=== PATIENT | female | born 1950 | race Caucasian/White ===

== ENCOUNTER → 2020-02-14 12:25 | Outpatient (CLI) | payer SELFPAY, OTHER ==
--- NOTE | 2020-02-14 12:36 | CT_ITS ---
STUDY: CT ABDOMEN AND PELVIS WITH CONTRAST REASON FOR EXAM: Female, 69 years old. RUQ AND DIFFUSE PAIN. APPY,GB,HERNIA AND C-SECTIONS RADIATION DOSAGE (If Supplied By Facility): CTDIvol = ( 14.87 ) mGy, DLP = ( 872.75 ) mGycm TECHNIQUE: Transaxial images were obtained from the dome of the diaphragm to the symphysis pubis with oral contrast. Oral and amp; IV Readi-CAT and amp; 50mL OPTIRAY 350 was administered. Sagittal and coronal images were reconstructed. Individualized dose optimization techniques were used for this CT. COMPARISON: None. FINDINGS: Minimal increased markings at the lung bases suggestive of mild scarring and/or linear atelectasis. The visualized portions of the heart are within normal limits. There is decreased attenuation of the liver consistent with steatosis. Calcified granuloma in the posterior aspect of the right lobe of the liver. There are surgical clips in the gallbladder fossa consistent with a prior cholecystectomy. Normal spleen. Normal pancreas. Normal bilateral adrenal glands. Normal right kidney. Normal left kidney. There is a small hiatal hernia. Normal small intestine. There are multiple colonic diverticula consistent with diverticulosis. There are surgical clips in the region of the appendix consistent with a prior appendectomy. Normal abdominal aorta. Normal inferior vena cava. Normal retroperitoneum. The bladder is almost empty. Mild bladder wall thickening. There is evidence of a mesh placement for repair of anterior ventral hernia. There are mild degenerative changes of the visualized lumbar spine. CT/Abdomen/Pelvis WITH Contrast IMPRESSION: Fatty infiltration of the liver. Bladder wall thickening. Electronically Signed: Mike Forman, at 13:20 EDT , Service support ,
[2020-02-14 12:50] LABS: CREATININE FINGERSTICK 0.9 mg/dL (0.55-1.02)
== END ==
PROVIDERS: PCP Nurse Practitioner Family; Referring Provider Nurse Practitioner Family; Visit Provider Nurse Practitioner Family
DX: N39.41 Urge incontinence (principal); R14.0 Abdominal distension (gaseous); R10.84 Generalized abdominal pain; R10.9 Unspecified abdominal pain; R19.8 Other specified symptoms and signs involving the digestive system and abdomen; N81.4 Uterovaginal prolapse, unspecified; N39.3 Stress incontinence (female) (male)
CPT/HCPCS: 74177; Q9967

== ENCOUNTER → 2022-03-31 | Outpatient (CLI) | payer SELFPAY ==
[2022-03-31 12:34] LABS: Absolute Lymphocyte Count 2.05 X10^3/uL (0.83-4.51); Absolute Neutrophil Count 3.2 X10^3/uL (2.0-7.7); Basophil# 0.02 X10^3/uL; Basophil% 0.3 % (0-1); Eosinophil# 0.16 X10^3/uL; Eosinophils% 2.7 % (0-5); Hematocrit 43.9 % (37-47); Hemoglobin 14.8 g/dL (12.0-15.0); Lymphocyte # 2.05 X10^3/ul (0.83-4.51); Lymphocyte % 34.2 % (19-41); Mean Corp Hgb Conc 33.7 g/dL (32-36); Mean Platelet Vol. 9.6 fl (6.2-12.0); Monocyte# 0.51 X10^3/uL; Monocyte% 8.5 % (0-10); NRBC Flagged by Analyzer 0 % (0-5); Neutrophil # 3.23 X10^3/uL (2.7-7.7); Neutrophil % 53.8 % (47-70); Platelet Count 257 K/mm3 (150-450); RBC Distribution Width CV 13.4 % (11.6-14.6); RBC Distribution Width SD 45.8 fl (35.1-43.9); Red Blood Count 4.77 M/mm3 (4.2-5.4)
[2022-03-31 13:20] LABS: Vitamin B12 592 pg/mL (211-911); Vitamin D,25 Hydroxy 31.6 ng/mL
[2022-03-31 13:35] LABS: ALB/GLOB Ratio 1.1 RATIO (0.9-2.4); AST(SGOT) 29 U/L (15-37); Alanine Aminotransfer ALT/SGPT 39 U/L (13-56); Albumin, Serum 4.1 g/dL (3.2-5.0); Alkaline Phosphatase 75 U/L (45-117); Anion Gap 5 (5-15); BUN 13 mg/dL (7-18); BUN/Creat Ratio 17.3 RATIO (10-20); CPK Total, Creatine Kinase 269 U/L (26-192); Calcium,Total 9.2 mg/dL (8.5-10.1); Chloride 106 mmol/L (98-107); Cholesterol 217 mg/dL (200); Creatinine, Serum 0.75 mg/dL (0.55-1.02); EST Glomerular Filtration Rate 81 mL/min (>60); Est Glom Filt Rate - Afr Amer 98 mL/min (>60); Globulin 3.6 g/dL (2.2-4.2); Glucose 96 mg/dL (74-106); High Density Lipoprotein 59 mg/dL; Potassium 4.2 mmol/L (3.5-5.1); Protein, Total 7.7 g/dL (6.4-8.2); Sodium Level 139 mmol/L (136-145); Thyroid Stim Hormone (TSH) 4.27 uIU/mL (0.358-3.74); Triglycerides 235 mg/dL; Very Low Density Lipoprotein 47 mg/dL (5-40)
[2022-03-31 14:58] LABS: CRP < 2.90 mg/L (0.0-3.0)
[2022-03-31 15:09] LABS: Erythrocyte Sedimentation Rate 6 mm/hr (0-30)
== END | disposition home or self-care (01) ==
LOC: BIMLAB 11:22
PROVIDERS: PCP Internal Medicine; Referring Provider Internal Medicine; Visit Provider Internal Medicine
DX: R53.82 Chronic fatigue, unspecified (principal); E55.9 Vitamin D deficiency, unspecified; R74.8 Abnormal levels of other serum enzymes; Z13.6 Encounter for screening for cardiovascular disorders
CPT/HCPCS: 36415; 80053; 80061; 82306; 82550; 82607; 84443; 85025; 85652; 86140

== ENCOUNTER 2022-06-04 08:25 | Day surgery (SDC) | payer SELFPAY, OTHER ==
[2022-05-26 11:28] LABS: Hemoglobin 14.4 g/dL (12.0-15.0); Mean Corp Hgb Conc 34.3 g/dL (32-36); Mean Corpuscular Hgb 31.2 pg (27.0-32.0); Mean Corpuscular Volume 91.1 fL (81-99); Mean Platelet Vol. 9.3 fl (6.2-12.0); Platelet Count 242 K/mm3 (150-450); RBC Distribution Width CV 13.3 % (11.6-14.6); RBC Distribution Width SD 44.8 fl (35.1-43.9); Red Blood Count 4.61 M/mm3 (4.2-5.4); White Blood Count 7.9 K/mm3 (4.4-11.0)
--- NOTE | 2022-05-26 11:36 | EKG12_ITS ---
Test Reason : PREOP Blood Pressure : / mmHG Vent. Rate : 078 BPM Atrial Rate : 078 BPM P-R Int : 150 ms QRS Dur : 124 ms QT Int : 434 ms P-R-T Axes : 058 071 024 degrees QTc Int : 494 ms Normal sinus rhythm Right bundle branch block Abnormal ECG Confirmed by RACHEL HO, CHAPITO ([id number]), food editor KYUNG MEDEL ([id number]) on 05/27/2022 9:50:19 AM Referred By: Sameer Easotn Confirmed By:CHAPITO RAMOS MD
[2022-05-26 12:00] LABS: Anion Gap 6 (5-15); BUN 14 mg/dL (7-18); BUN/Creat Ratio 18.8 RATIO (10-20); Calcium,Total 9.5 mg/dL (8.5-10.1); Chloride 105 mmol/L (98-107); Creatinine, Serum 0.74 mg/dL (0.55-1.02); EST Glomerular Filtration Rate 81 mL/min (>60); Est Glom Filt Rate - Afr Amer 99 mL/min (>60); Glucose 99 mg/dL (74-106); Sodium Level 140 mmol/L (136-145)
[2022-05-26 23:37] LABS: T4 Free Direct 0.83 ng/dL (0.76-1.46); Thyroid Stim Hormone (TSH) 5.34 uIU/mL (0.358-3.74)
[2022-06-04] VITALS (7 sets, daily range): BP systolic 107–142; BP diastolic 77–90; PULSE 75–88; RESP 16; TEMP 36.2–36.8; O2SAT 94–97; BMI 27.6
[2022-06-04] MEDS: Lactated Ringers 1,000 ML 15 ML IV (09:30)
--- NOTE | 2022-06-04 10:50 | HP.PCM_ITS ---
History and Physical Date of Admission: 06/04/22 Intake Visit Reasons:?UPDATE H&P Chief Complaint: Update H&P Regional Cra Required: No Accompanied by: Daughter Is patient in pain?: No Allergies cashew nut Allergy (Mild, Verified 05/12/22 12:39) Rashvenom-honey bee Allergy (Mild, Verified 05/12/22 12:39) Hiveslatex Allergy (Unknown, Verified 05/12/22 12:39) unknown Medications cyanocobalamin (vitamin B-12) 3,000 mcg capsule 3,000 mcg PO DAILY 03/30/22 [History Confirmed 05/12/22] levothyroxine 25 mcg tablet (Synthroid) 25 mcg PO DAILY #30 tabs 03/31/22 [Rx Confirmed 05/12/22] PFSH Medical History? Arthritis Chronic fatigue Diverticulosis History of hemorrhoids Peptic ulcer Ventral incisional hernia without obstruction or gangrene Vitamin D deficiency Surgical History? History of appendectomy History of History of umbilical hernia repair History of ventral hernia repair Hx of cholecystectomy Hx of colonoscopy Hx of dilation and curettage Hx of tubal ligation Family History? Mother CancerFather Heart diseaseSister Cancer ?? ? Non-Hodgkin's lymphomaBrother Diabetes Social History? household members:? spouse and children Smoking Status:? Never smoker alcohol intake:? never substance use type:? does not use what type of physical activity do you participate in:? none seatbelt use:? always do you feel safe at home:? Yes HPI HPI HPI: FORTUNATO DAVIS, is a 71 F who presents to the office today for an update history and physical for an upcoming ventral incisional hernia repair suprapubic region. Patient denies any recent hospitalizations or illnesses. Patient has had previous hernia repairs with mesh. She states she is waiting to have a total hysterectomy and bladder repair until after the hernia is repaired. Patient notes some discomfort at the hernia site. She notes limiting her lifting to a minimum due to the hernia. No cardiac and pulmonary history. She is not on any blood thinners. She has been started on thyroid medication by her PCP. She presents with her daughter.? Patient's previous history per Dr. Easton: FORTUNATO DAVIS, is a 71 F who presents to the office today for surgical consultation regarding a remote ventral hernia repair?2001 and then 2008.? It is of note that in 2001 she had a focal repair of a ventral hernia and then 2008 laparoscopic repair with the placement of a large sheet of Albion-Jimy mesh.? I have seen her most recently on May 20, 2021.? It was of note that an umbilical herniorrhaphy with Marlex mesh plug was performed January 03, 2002 and then there was a recurrent periumbilical ventral incisional hernia February 19 2009 that I repaired laparoscopically with a 24 x 18 cm piece of DualMesh.? My clinical exam a year ago felt the abdominal exam was very benign.? There is evidence of the original gortex mesh at the umbilicus causing sensation of firmness.? There was absolutely no evidence of recurrent hernia at the umbilicus at that time..? The patient was not complaining of right suprapubic pain at that time.? She is not complaining of umbilical or mid abdominal pain at this time she has a new problem that has come to light down in the right lower quadrant suprapubic area.? She can feel a mass or bulge it will increase and become more tender she is able to put heat on it and get it to partly resolve.? She thought it might have been infected so she borrowed some antibiotics but is not clear whether that made any difference. To further complicate things she has significant vaginal prolapse.? She is to have a vaginal hysterectomy with bladder suspension procedure.? That is to be done out of town and she is uncomfortable that would like to have something done closer to home. Finally she has an additional issue that being what she thinks is a hemorrhoid that is irritating her anus.? She reminds me that in the past have assisted her with a colonoscopy demonstrating diverticulosis and hemorrhoids. February 14, [address] patient [address] a CT of the abdomen pelvis.? There were surgical clips in the gallbladder fossa consistent with a previous cholecystectomy.? There is evidence of mesh placement for repair of an anterior ventral hernia.? There is no evidence of any ventral hernia at that time.? I have reviewed those images and that repair is wonderfully intact at the umbilicus however inferior to the mesh slightly of the right there appears to be some distortion in the subcutaneous tissue which would indicate a potential hernia in that location? ROS General General: Yes fatigue and weakness; No weight change, appetite, colon cancer or breast cancer HEENT HEENT: No difficulty swallowing, eye injury, eye surgery, swollen glands or hoarseness Endo Endocrine: No thyroid disease, diabetes mellitus, thyroid cancer, Hair loss, heat intolerance or cold intolerance Musc Musculoskeletal: Yes arthritis; No back problems, rheumatoid arthritis, gout or joint pain Cardio Cardiovascular: No murmur, pacemaker, heart disease, atrial fibrillation, high blood pressure, heart attack, heart stent, palpitations, shortness of breat with exertion or chest pain Psych Psychiatric: No depression, anxiety or hearing voices Resp Respiratory: No shortness of breath, No sleep apnea, No cough, No COPD, No asthma, No emphysema and No wheezing Gastro Gastrointestinal: Yes abdominal pain, No nausea or vomiting, Yes diarrhea, No constipation, No blood in stool, No acid reflux, Yes hemorrhoids, No ulcers, No gallbladder problem and No black,tarry stools Singh Hematologic: No blood thinners, No blood disorders, No bleeding, No anemia and No blood clots Neuro Neurologic: No system reviewed and no additional complaints, except as documented, No as per HPI, No abnormal gait, No abnormal hearing, No abnormal movements, No abnormal speech, No behavioral changes, No burning sensations, No confusion, No convulsions, No disequilibrium, No dizziness, No localized weakness, No frequent falls, No headache(s), No lack of coordination, No loss of vision, No memory loss, No numbness, No other visual disturbances, No radicular pain, No restless legs, No sensory deficit, No syncope, No tingling, No tremor(s), Yes weakness and No other Exam Const General: cooperative, healthy appearing, comfortable and no acute distress Nutritional Appearance: obese Orientation: alert, awake and oriented x3 HENMT Head: normal to inspection Eyes General: appearance normal, both eyes and all related structures Neck Neck: normal visual inspection Neck mass: No Resp Effort & Inspection: normal respiratory effort Auscultation: clear to auscultation bilaterally Cardio Rate: regular rate Rhythm: regular rhythm GI Other: soft, overweight, thin abdominal wall, right suprapubic area there is a soft tissue compressible mass plapated with the patient standing. It is reducible. Positive bowel sounds. Skin General: no rashes or lesions noted Neuro General: no focal motor deficits and CN's II-XI intact bilaterally Extrem General: normal to inspection Psych Appearance: grossly normal Affect: normal affect Assessment and Plan Assessment and Plan (1) Ventral incisional hernia without obstruction or gangrene: ?Status:?Acute ?Plan: Dr. Easton will plan to perform an open right ventral incisional hernia repair with mesh in the right suprapubic/ inguinal region. Procedure details, risks and benefits have been reviewed. Patient verbally understands and agrees with the plan. Patient will plan to have her LICENSED LOAN OFFICER ASSISTANT and urologic procedures completed in August. It was decided by the patient and her LICENSED LOAN OFFICER ASSISTANT that the hernia would need to be repaired prior to the combo procedure with urology. Patient and her daughter have had the opportunity to ask and have questions answered. She is not maintained on any blood thinners. I have re-examined the patient. There are no clinical changes since date of exam Sameer Easton M.D., F.A.C.S..
--- NOTE | 2022-06-04 11:00 | HERN_PTH ---
PATIENT: FORTUNATO DAVIS [place] [facility] [id number] AGE/SX: 71/F ROOM: RE06/04/[address]: Dr. Sameer Easton MD : 1950 BED: DIS: 06/04/2022 SPEC #: [id number] RECD: 06/04/22 14:33 STATUS: EVELIO TURNER #: [id number] АЛЕКСАНДР: 06/04/22 11:[address]: Sameer Easton DEPT: SURGICAL PATHOLOGY RECD BY: Bridget Cordova ENTERED: 06/05/22 06:58 SP TYPE: Hernia OTHR DR: Dr. Tracy Martin MD Tissues: HERNIA Procedures: Surgery Specimen Level II HEADER OPERATION: Ventral/incisional hernia repair with mesh PRE-OP DIAGNOSIS: Ventral incisional hernia TISSUE SUBMITTED: Hernia sac and contents MICROSCOPIC DIAGNOSIS Hernia sac and contents: Pieces of fibroadipose and fibroconnective tissue with focal chronic inflammation, clinically hernia sac and contents. DARYA:kristen 06/08/2022 MICROSCOPIC DESCRIPTION Slides are reviewed. GROSS DESCRIPTION Received in fixative is one container labeled with the patient's name and designated hernia sac and contents. The specimen consists of variable sized pieces of yellow adipose measuring in aggregate 9 x 7.5 x 2.5 cm. Sections do not reveal any mass lesion. Speech Language Pathologist Assistant sections are submitted in two cassettes. / DARYA:kristen 06/05/2022 TC:5 CPT: 23108
--- NOTE | 2022-06-04 11:07 | DCINST_ITS ---
Discharge Instructions Procedure General Surgery Diet Discharge Diet: Light diet - advance as tolerated (if you have questions about your diet instructions, please talk to you doctor.) Activity Discharge Activity: May Not Drive (for 3-5 days or while taking narcotic pain medicine.) May shower in (days): 1 Lifting Restrictions: 10 pounds Dressing / Incision Call your doctor if your incision/area has: Continuous Slow Oozing, Sudden Increased Bleeding, Increased Pain/ Swelling, Increased Redness and Foul Smelling Discharge Call your doctor if you observe: Fever of 101 or Higher Suture Line Care: Avoid Pulling/Pushing and Avoid Pinching/Bending Additional Dressing/Incision Instructions:: Change or remove dressing in 4 days. Leave steri-strips in place for 1 week. Follow Up Care Please Follow Up With: Sameer Easton MD When: Call [phone] to make an appointment to be seen in about 10 days. Test Results: Test results from this visit will be discussed in further detail at your follow- up appointment, if applicable. Discharge Plan Admission Attending Provider: Sameer Easton Primary Care Provider: Tracy Martin Discharge Orders/Prescriptions Prescriptions: No Action cyanocobalamin (vitamin B-12) 3,000 mcg capsule 3,000 mcg PO DAILY cholecalciferol (vitamin D3) 50 mcg (2,000 unit) capsule 50 mcg PO DAILY levothyroxine [Synthroid] 25 mcg tablet 25 mcg PO DAILY Qty: 30 5RF Referrals / Follow Up: Tracy Martin MD [Primary Care Provider] - Disposition Disposition (needs filled in before D/C Order can be placed): Home, Self Care
[2022-06-04] MEDS: Cefazolin 2 GM in 0.9% Normal Saline 100 ML IV (11:18)
[2022-06-04] MEDS: Bupivacaine 0.25% 30 ML Vial (12:03)
--- NOTE | 2022-06-04 12:06 | OP.PCM_ITS ---
Report of Operation Date of Procedure: 06/04/22 Pre-Operative Diagnosis: Right lower quadrant suprapubic incarcerated ventral i ncisional hernia Post-Operative Diagnosis: Same Surgery/Procedure Performed:: Right lower right lower quadrant ventral incisional hernia repair with 4.3 cm Ventralex mesh Reference number: [id number], lot number [id number], expiry date 08/05/2023 Description of Surgical Findings:: Timeout and informed consent was obtained. 71-year-old female was taken to the operating placed upon the table underwent general trach intubation esthesia. The abdomen sterilely prepped and draped. Ioban draping was used as well. 0.25 % Marcaine was used as a local anesthetic. Procedure 30 cc was used. The skin was anesthetized. Then a transverse incision was made over the palpable mass sharp dissection carried down through the sepsis tissue it became apparent that there was incarcerated along omentum within it and ventral incisional hernia likely related to a remote . Tediously and carefully the sac was opened fragments of omentum and sac transected with hemostasis obtained electrocautery and 3-0 Vicryl ligatures. The sac was then secured with a 3-0 Vicryl suture ligature and a 3-0 Vicryl tie sac was inverted and in the retrorectus plane developed the space to allow placement of a 4.3 cm Ventralex mesh. I secured that in place with interrupted 0 Nurolon. The fascial defect which measured approximately 1-1/2 cm in diameter was then approximated transversely with simple sutures of 0 Nurolon. I did assure that I had securement to the anterior wall of the mesh as well. Good closure was felt to been achieved. The JG fascial areas anesthetized with the Marcaine. Deep tissue approximated with a simple suture of 3-0 Vicryl. Skin edges proximal and subicular 4 Monocryl. Steri-Strips Telfa OpSite dressings applied. Sponge and instrument and needle counts were reported to the surgeon to be correct. Specimen hernia sac and contents. Drains none. Blood loss minimal. The patient received Ancef as noted above also became procedure she received 200 mg of Diflucan IV because of the right groin rash. Sameer Easton M.D., F.A.C.S. Surgeon: Sameer Easton Type of Anesthesia: General and Local Anesthesiologist: Tatyana Velázquez
== END 2022-06-04 14:27 | disposition home or self-care (01) ==
LOC: SDC 08:29 → AC 08:35
PROVIDERS: PCP Internal Medicine; Referring Provider Surgery; Visit Provider Surgery
PROC: (CPT 49561; principal; 2022-06-04 10:45)
DX: K43.0 Incisional hernia with obstruction, without gangrene (principal); E66.9 Obesity, unspecified; E03.9 Hypothyroidism, unspecified; E55.9 Vitamin D deficiency, unspecified; Z79.899 Other long term (current) drug therapy; Z68.27 Body mass index [BMI] 27.0-27.9, adult
CPT/HCPCS: 49561; 49568; 00752; 36415; 80048; 84439; 84443; 85027; 88302; 93005; J7120; C1781; J2405

== ENCOUNTER 2022-10-09 08:52 | Observation (INO) | payer SELFPAY, OTHER ==
[2022-10-09] VITALS (12 sets, daily range): BP systolic 95–135; BP diastolic 60–74; PULSE 77–92; RESP 14–16; TEMP 36.3–37.9; O2SAT 94–98; BMI 31.8; BMI 33.0
--- NOTE | 2022-10-09 01:57 | HP.PCM_ITS ---
History and Physical Intake Visit Reasons:?preop wyneski combo TVHBSO Chief Complaint: pre op Tablet Coater Required: No Is patient in pain?: No Allergies cashew nut Allergy (Mild, Verified 06/15/22 13:20) Rashvenom-honey bee Allergy (Mild, Verified 06/15/22 13:20) Hiveslatex Allergy (Unknown, Verified 06/15/22 13:20) unknownchloraprep Allergy (Uncoded 06/15/22 13:33) Rash Medications cyanocobalamin (vitamin B-12) 3,000 mcg capsule 3,000 mcg PO DAILY 03/30/22 [History Confirmed 09/21/22] cholecalciferol (vitamin D3) 50 mcg (2,000 unit) capsule 50 mcg PO DAILY 05/26/22 [History Confirmed 09/21/22] levothyroxine 25 mcg tablet (Synthroid) 25 mcg PO DAILY #30 tabs 05/26/22 [Rx Confirmed 09/21/22] Is last menstrual period known: No Post menopausal: No Patient : No : No [facility] Medical History? Arthritis Chronic fatigue Chronic pain Diverticulosis History of blood transfusion History of hemorrhoids Hypothyroid Peptic ulcer Ventral incisional hernia without obstruction or gangrene Vitamin D deficiency Wears dentures Wears glasses Surgical History? History of appendectomy History of History of umbilical hernia repair History of ventral hernia repair Hx of cholecystectomy Hx of colonoscopy Hx of dilation and curettage Hx of tubal ligation Family History? Mother CancerFather Heart diseaseSister Cancer ?? ? Non-Hodgkin's lymphomaBrother Diabetes Social History? household members:? spouse and children Smoking Status:? Never smoker alcohol intake:? never substance use type:? does not use what type of physical activity do you participate in:? none seatbelt use:? always do you feel safe at home:? Yes HPI preop wyneski combo TVHBSO Details: FORTUNATO DAVIS is a 72 year old who presents for preop appointment.? she is stable with symptoms except for additional hemorrhoid symptoms. she denies any new vaginal bleeding or discharge. Female Reproductive History Menopausal Symptoms: No night sweats History ? ? ? 11 ? Elective abortions ? Hx Para ? ? ? 8 ? Spontaneous abortions ? Hx # Term Pregnancies ? Ectopic pregnancies ? Hx # Pregnancies ? Multiple births ? # of living children ? ? ? 8 ROS Const Constitutional: Reports system reviewed and no additional complaints, except as documented and fatigue; Denies headache(s) or night sweats ENT ENT: Reports system reviewed and no additional complaints, except as documented Cardio Card: Denies chest pain Resp Resp: Reports dyspnea; Denies cough GI GI: Reports bloating; Denies abdominal pain, change in stool character, constipation, fecal incontinence, nausea or vomiting : Reports prolapse symptoms, urinary frequency, urinary incontinence and vaginal dryness; Denies nipple discharge, pelvic pain, sexual dysfunction, urinary urgency, vaginal discharge, vaginal odor or vaginal pruritus Musc Musc: Reports arthralgias; Denies back pain or muscle weakness Skin Skin/Breast: Denies alopecia, change in hair, dry skin, breast mass, breast pain, breast skin changes or nipple discharge Neuro Neuro: Reports system reviewed and no additional complaints, except as documented Psych Psych: Denies anxiety or depression Endo Endo: Denies cold intolerance, excessive sweating, heat intolerance or polydipsia Singh/Lymph Hematologic/Lymphatic: Denies easy bleeding, Denies easy bruising and Denies lymphadenopathy Exam Const General: cooperative, healthy appearing, comfortable, no acute distress and well developed Orientation: alert [facility] Head: normal to inspection, normocephalic and atraumatic Ears: hearing grossly normal bilaterally and external ears normal Nose: external nose normal and nares normal Face and sinus: normal facial exam Neck Neck: normal visual inspection, full ROM, no lymphadenopathy and trachea midline Thyroid: thyroid normal Chest Chest palpation & inspection: normal inspection of the chest Breast inspection: normal inspection of the breasts, normal inspection of the axillae, abnormal inspection of the axilla and abnormal inspection of the breast Resp Effort & Inspection: normal respiratory effort Auscultation: clear to auscultation bilaterally Cardio Rate: regular rate Rhythm: regular rhythm Heart Sounds: S1 normal and S2 normal GI Inspection: normal to inspection and non-distended Palpation: soft, no hepatosplenomegaly, no hepatomegaly, not rigid and nontender General: bladder normal to palpation External Female Exam: abnormal external appearance (atrophic introitus), normal appearance of the urethra and no lesions Urethra: normal appearance of the urethra Speculum Exam - Vagina: abnormal appearance of the vagina, normal vaginal discharge, vagina atrophic and no lesions Speculum Exam - Cervix: normal appearance of the cervix Bimanual Exam- Vagina & Uterus: normal bimanual exam, uterine size normal, bladder normal to palpation, uterine shape normal, uterine mobility normal and non-tender Bimanual Exam- Adnexa, other: normal adnexae, no masses, rectocele, cystocele and vaginal apex descent (complete procidentia) Pelvic Support: cystocele severe (IV), rectocele severe (IV) and vaginal apex descent (complete procidentia) Musc Other: gross motor intact no deficits, full bilateral strength Skin General: no rashes or lesions noted and atrophy Neuro General: patient alert, patient awake, moves all extremities and no focal motor deficits Motor: muscle tone normal throughout Extrem General: normal to inspection and no pedal edema Psych Appearance: grossly normal Mental Status: mental status grossly normal Affect: normal affect Speech and Movement: speech and movement normal Coding Level of Care Code No Charge Diagnoses History of ? Z98.891 Uterine procidentia? N81.3 Assessment and Plan Assessment and Plan (1) History of : ?Status:?Resolved ?Comment: x1, will perform vaginal due multiple mesh/hernias in abdomen. (2) Uterine procidentia: ?Status:?Acute ?Comment: combo case with jie Esparza After discussing the patient's diagnosis and treatment plan options, patient wishes to proceed with surgical management.? I have discussed with the patient the risks, benefits, and alternatives of the procedure which include but are not limited to risks of anesthesia, bleeding, infection, possible damage to bowel, bladder, or surrounding vasculature which could lead to additional surgery to evaluate any complications.? Patient agrees to procedure and wishes to proceed.? ACOG/uptodate references given for additional information regarding procedure.? UPDATE- I have seen the patient and performed any clinically relevant updates to the history and physical exam. Kristine Stephens MD
[2022-10-09 06:27] LABS: Absolute Lymphocyte Count 2.03 X10^3/uL (0.83-4.51); Absolute Neutrophil Count 2.8 X10^3/uL (2.0-7.7); Basophil# 0.03 X10^3/uL; Basophil% 0.5 % (0-1); Eosinophil# 0.13 X10^3/uL; Eosinophils% 2.3 % (0-5); Hematocrit 42.2 % (37-47); Hemoglobin 14.1 g/dL (12.0-15.0); Lymphocyte # 2.03 X10^3/ul (0.83-4.51); Lymphocyte % 35.9 % (19-41); Mean Corp Hgb Conc 33.4 g/dL (32-36); Mean Corpuscular Hgb 30.5 pg (27.0-32.0); Mean Corpuscular Volume 91.1 fL (81-99); Mean Platelet Vol. 9.1 fl (6.2-12.0); Monocyte# 0.65 X10^3/uL; Monocyte% 11.5 % (0-10); NRBC Flagged by Analyzer 0 % (0-5); Neutrophil % 49.6 % (47-70); Platelet Count 273 K/mm3 (150-450); RBC Distribution Width CV 13.2 % (11.6-14.6); RBC Distribution Width SD 43.8 fl (35.1-43.9); Red Blood Count 4.63 M/mm3 (4.2-5.4); White Blood Count 5.7 K/mm3 (4.4-11.0)
[2022-10-09] MEDS: Scopolamine 1mg/72hr Patch 1 PATCH TD (06:31)
[2022-10-09] MEDS: Lactated Ringers 1,000 ML 40 ML IV ×2 (06:31→09:45)
[2022-10-09] MEDS: Gabapentin 600 MG Tablet PO (06:32)
[2022-10-09] MEDS: Acetaminophen 500 MG Tablet 1000 MG PO (06:33)
[2022-10-09] MEDS: dexAMETHasone 10 MG/ML Vial 8 MG IV (06:33)
[2022-10-09] MEDS: Celecoxib 200 MG Capsule 400 MG PO (06:33)
[2022-10-09 06:50] LABS: ALB/GLOB Ratio 1.1 RATIO (0.9-2.4); AST(SGOT) 29 U/L (15-37); Alanine Aminotransfer ALT/SGPT 34 U/L (13-56); Albumin, Serum 3.7 g/dL (3.2-5.0); Alkaline Phosphatase 68 U/L (45-117); Anion Gap 6 (5-15); BUN 9 mg/dL (7-18); Calcium,Total 8.7 mg/dL (8.5-10.1); Chloride 108 mmol/L (98-107); EST Glomerular Filtration Rate 66 mL/min (>60); Est Glom Filt Rate - Afr Amer 79 mL/min (>60); Estimated Creatinine Clearance 40.58 ml/min; Globulin 3.3 g/dL (2.2-4.2); Glucose 96 mg/dL (74-106); Magnesium 2.2 mg/dL (1.6-2.6); Potassium 3.5 mmol/L (3.5-5.1); Sodium Level 141 mmol/L (136-145); Thyroid Stim Hormone (TSH) 5.68 uIU/mL (0.358-3.74)
--- NOTE | 2022-10-09 07:30 | HYST_PTH ---
PATIENT: FORTUNATO DAVIS LOC: [facility] U#:[id number] AGE/SX: 72/F ROOM: [facility]319 RE10/09/[address]: Dr. Kristine Stephens MD : 1950 BED: 1 DIS: 10/10/2022 SPEC #: [id number] RECD: 10/09/22 12:55 STATUS: EVELIO TURNER #: [id number] АЛЕКСАНДР: 10/09/22 07:[address]: Kristine Stephens DEPT: SURGICAL PATHOLOGY RECD BY: Anika Moreira ENTERED: 10/09/22 13:18 SP TYPE: HYSTERECT OTHR DR: MD Dr. Tatyana Guzman MD Tissues: Uterus, NOS Procedures: Surgery Specimen Level V HEADER OPERATION: ERAS, total vaginal hysterectomy, left salpingectomy PRE-OP DIAGNOSIS: History of , uterine procidentia TISSUE SUBMITTED: Cervix, uterus and left fallopian tube MICROSCOPIC DIAGNOSIS Cervix, uterus and left fallopian tube, vaginal hysterectomy and left salpingectomy: Cervix ? chronic cystic cervicitis. Hyperkeratosis, parakeratosis and reactive epithelial changes. Endometrium ? inactive endometrium with focal cystic changes. Myometrium - no pathologic diagnosis. Left fallopian tube - no pathologic diagnosis. SJ:rg 10/12/2022 COMMENT Case has been reviewed in consultation with Dr. Fritz who concurs with the above diagnosis. IDC:AM MICROSCOPIC DESCRIPTION Slides are reviewed. GROSS DESCRIPTION Received in fixative is one container labeled with the patient's name and designated uterus. The specimen consists of a uterus with attached cervix and detached fallopian tube. The uterus with cervix measures 10.2 x 5 x 3.2 cm and weighs 69 gm. The ectocervix is unremarkable. The endocervical canal measures 5.6 cm in length and is grossly unremarkable. The triangular endometrial cavity measures 4.5 x 2 cm. The reddish-avery, velvety endometrium measures up to 0.2 cm in thickness. The myometrium measures 1.5 cm in average thickness and is free of mass lesions. The fallopian tube segment measures 2.5 cm in length and 0.6 cm in average diameter. Entertainer & Comic sections are submitted as follows: 1??anterior cervix, 2 - posterior cervix, 3 & 4 - anterior uterine wall, 5 & 6 - posterior uterine wall, 7??fallopian tube serially sectioned and totally submitted. / AM:kristen 10/09/2022 TC:5 CPT: 50687
[2022-10-09] MEDS: Cefazolin 2 GM in 0.9% Normal Saline 100 ML IV (07:45)
[2022-10-09 07:55] LABS: Bedside Glucose 112 mg/dL (74-106)
[2022-10-09] MEDS: Vasopressin 20 UNITS/ML Vial (08:16)
--- NOTE | 2022-10-09 08:58 | OP.PCM_ITS ---
Problems Associated Problem List Diagnoses (1) Uterine procidentia: Report of Operation Date of Procedure: 10/09/22 Pre-Operative Diagnosis: Complete uterovaginal prolapse, stress urinary incontinence Post-Operative Diagnosis: Same Surgery/Procedure Performed:: Anterior repair with dermis and posterior repair, bilateral sacrospinous ligament fixation, mid urethral sling, cystourethroscopy with bilateral ureteral catheterization Surgeon: Tatyana Thomas Type of Anesthesia: General Estimated Blood Loss (mL): 50 cc Description of Procedure: The patient is a 72-year-old female with complete procidentia who presents for definitive surgical intervention. Informed consent was obtained. Patient was taken to the operating room and placed on the operating room table. She was appropriately padded and secured to the table. Anesthesia monitored the head, neck, airway, IV access and vital signs throughout the case. Once anesthesia was appropriately administered, the patient was placed into exaggerated dorsolithotomy and Trendelenburg position. She was prepped and draped in usual sterile fashion. A Hill catheter was inserted to straight drain. A vaginal hysterectomy and oophorectomy was performed by Dr. Stephens. The cuff line was closed. The case was turned over to or. The Hill catheter was removed and the cystoscope was inserted through the urethra under direct visualization into the urinary bladder. There were no injuries to the urinary bladder identified. Each ureteral orifice was intubated with a 5 Bulgarian whistle-tip catheter which was then left in situ. Clear urine was seen coming from each catheter. It was each was advanced to 20 cm. At this time the cystoscope was removed and the Hill catheter was placed alongside the whistle-tip catheters which were attached to the Hill using Steri-Strips. The anterior vaginal wall was so prolapsed that it was difficult to tell where the bladder neck, urethra and bladder were relative to each other. The anterior vaginal wall was isolated and injected submucosally with local anesthetic for hydrostatic dissection and hemostatic control. A midline incision was made in vertical fashion approximately 2 cm in length. Sharp dissection mostly and some blunt dissection was performed in full-thickness fashion. Her mucosa was very friable and thin. Dissection continued until the ischial spines were identified bilaterally. The sacrospinous ligaments were freed from surrounding tissues. The Capio device was then used to pass Ethibond sutures through the sacrospinous ligament on each side. They were then carefully brought through the dermis and through the vaginal apex and full-thickness fashion bilaterally. The dermis was cir cumferentially secured to the identified fascia using interrupted 2-0 Vicryl. After this was complete, the incision was closed using running interlocking 2-0 Vicryl. At this time the Ethibond sutures were tied into position and the prolapse was reduced. The posterior portion of the repair was then approached next. The submucosa was injected for hydrostatic dissection and a midline incision was made. Sharp and blunt dissection was performed until the rectovaginal fascia was identified. It was brought together in a 2 layer closure using 2-0 Vicryl. The perineal body was then reconstructed. The vaginal mucosa was then brought together using a running interlocking 2-0 Vicryl. Attention was then turned towards the mid urethra. This area was infiltrated once again with local anesthetic and a midline incision was made. Sharp and blunt dissection was performed on either side of the urethra with care being taken to avoid entrance into the vagina or the urethra. Using the trochars provided, the Altis mid urethral sling was inserted into the transobturator complexes bilaterally. It was placed against the urethra without tension using the tensioning suture which was then cut. The sling lay flat against the urethra. The mucosa was then closed over the sling using running interlocking 2-0 Vicryl. The Hill catheter was then once again removed. Bilateral ureteral catheters were seen to be emptying profusely with clear urine. The cystoscope was inserted alongside the catheter is under direct visualization. Once in the urinary bladder, the bladder mucosa was visualized in its entirety. In the area of the dome there is a small area of glomerulation was identified. There was no defect in the mucosa. The area was approximately 1 cm in diameter. Bilateral ureteral catheters were removed without difficulty and without blood indicating no evidence of trauma. At this time the Hill catheter was replaced and the balloon was filled with 10 cc. The vagina was packed with Premarin cream and vaginal packing. The patient was then awakened and taken to the recovery room in good condition. There were no complications during this procedure. Grafts/Implants Used: Dermis, Altis mid urethral sling Complications None Admit VTE Documentation VTE Present on Admission: Yes VTE Mechan Device Prophylaxis: SCD's VTE Pharm Prophylaxis ordered?: Yes
--- NOTE | 2022-10-09 08:59 | DCINST_ITS ---
Discharge Instructions Diet Discharge Diet: No restrictions Activity Discharge Activity: May Not Drive (For 2 weeks) and May Shower May resume sexual activity in: 8 weeks Lifting Restrictions: 5 pounds Additional Activity Instructions:: No strenuous activity, no exercise, no lifting over 5 pounds, no vacuuming, no tub bathing, no hot tubs, no swimming, no sexual activity Dressing / Incision Call your doctor if your incision/area has: Continuous Slow Oozing, Sudden Increased Bleeding, Increased Pain/ Swelling, Increased Redness and Foul Smelling Discharge Call your doctor if you observe: Fever of 101 or Higher, Inability to urinate and Inability to have a bowel movement Catheter: Hill to leg bag and Hill to large bag (Okay to give large bag for nighttime use. Instruct patient on Hill catheter removal which should be done Wednesday.) Follow Up Care Please Follow Up With: Tatyana Thomas MD When: Call for appointment to be seen Wednesday morning Test Results: Test results from this visit will be discussed in further detail at your follow- up appointment, if applicable. Discharge Plan Admission Admit Date/Time: 10/09/22 08:52 Attending Provider: Kristine Stephens Primary Care Provider: Tracy Martin Consulting Providers: Tatyana Thomas Discharge Orders/Prescriptions Prescriptions: New oxycodone-acetaminophen [Percocet] 5-325 mg tablet 1 tab PO Q8H PRN (Reason: pain) 5 Days Qty: 15 0RF cephalexin [cephalexin] 500 mg capsule 500 mg PO Q12 3 Days Qty: 6 0RF Continued cyanocobalamin (vitamin B-12) 3,000 mcg capsule 3,000 mcg PO DAILY cholecalciferol (vitamin D3) 50 mcg (2,000 unit) capsule 50 mcg PO DAILY levothyroxine [Synthroid] 25 mcg tablet 25 mcg PO DAILY Qty: 30 5RF Referrals / Follow Up: Tracy Martin MD [Primary Care Provider] - Disposition Discharge Orders: Discharge Patient (Routine); Ordered 10/10/22 Ordered By: Dr. Tatyana Thomas
--- NOTE | 2022-10-09 10:08 | OP.PCM_ITS ---
Problems Associated Problem List Diagnoses (1) Uterine procidentia: Report of Operation Date of Procedure: 10/09/22 Pre-Operative Diagnosis: see PL Post-Operative Diagnosis: same Surgery/Procedure Performed:: TVH LS Description of Surgical Findings:: nl uterus tubes ovaries difficult visualization Type of Anesthesia: General Specimen's removed: uterus, tubes, ovaries Drains: courtney Fluids Replaced: crystalloid Description of Procedure: Patient was taken to the operating room and was placed under general anesthesia was prepped and draped in normal sterile fashion in the dorsal lithotomy position. Preoperative antibiotics and SCDs and Courtney catheter was placed inside the bladder. Weighted speculum was placed in the vagina and the anterior and posterior lip of the cervix was grasped with 2 Rosalba clamps and circumferentially injected with dilute vasopressin. A circumferential incision was made with a scalpel and the posterior cul-de-sac was entered into sharply and a longneck speculum was placed. The anterior cul-de-sac was also dissected down and entered into sharply and the uterosacral ligaments were clamped cut and suture ligated bilaterally followed by the cardinal ligaments which were Clamped cut and suture ligated bilaterally with 0 Monocryl. The uterus serially descended and progressive bites were taken bilaterally up to the level of the utero-ovarian ligament bilaterally which was clamped transected and double lig ated with 0 Monocryl suture and 0 Vicryl free tie. posterior peritoneum closed with 2-0 vicryl. difficult visualization of the bilateral adnexa due to severe prolapse and body habitus was present, but ovaries were WNL, the left tube was able to be removed, but the others were unable to be safely accessed or removed. The vagina was closed with [id number] 0 Vicryl pop offs including the posterior and anterior peritoneum in the reapproximation. Excellent hemostasis was noted. Then Dr. Thomas began her portion of the procedure. Grafts/Implants Used: none Complications none Admit VTE Documentation VTE Present on Admission: No VTE Mechan Device Prophylaxis: SCD's VTE Pharm Prophylaxis ordered?: Yes Multi Select Codes Urinary/Genital Urinary/Genital CPT Codes: 34934 TVH+BS/O <250gr uterus
[2022-10-09] MEDS: Estrogens,Conj. 1 Tube 1 DOSE (11:25)
[2022-10-09 12:16] LABS: Hematocrit 36.4 % (37-47); Hemoglobin 12.3 g/dL (12.0-15.0); Mean Corp Hgb Conc 33.8 g/dL (32-36); Mean Corpuscular Hgb 30.8 pg (27.0-32.0); Mean Corpuscular Volume 91.2 fL (81-99); Mean Platelet Vol. 9.2 fl (6.2-12.0); Platelet Count 235 K/mm3 (150-450); RBC Distribution Width CV 13.1 % (11.6-14.6); RBC Distribution Width SD 44.1 fl (35.1-43.9); Red Blood Count 3.99 M/mm3 (4.2-5.4); White Blood Count 6.6 K/mm3 (4.4-11.0)
[2022-10-09] MEDS: Ondansetron 4 MG/2 ML Vial IV (12:17)
[2022-10-09] MEDS: Dextrose 5%-Lactated Ringers 1,000 ML 100 ML IV ×2 (12:17→20:03)
[2022-10-09 12:30] LABS: Anion Gap 6 (5-15); BUN 8 mg/dL (7-18); BUN/Creat Ratio 10.6 RATIO (10-20); Calcium,Total 8.3 mg/dL (8.5-10.1); Chloride 110 mmol/L (98-107); Creatinine, Serum 0.75 mg/dL (0.55-1.02); EST Glomerular Filtration Rate 80 mL/min (>60); Est Glom Filt Rate - Afr Amer 97 mL/min (>60); Estimated Creatinine Clearance 36.53 ml/min; Glucose 169 mg/dL (74-106); Potassium 3.8 mmol/L (3.5-5.1); Sodium Level 141 mmol/L (136-145)
[2022-10-09] MEDS: Cefazolin 1 GM/50 ML BAG IV (15:59)
[2022-10-09] MEDS: Docusate Sodium 100 MG Capsule 200 MG PO (20:03)
[2022-10-10] MEDS: Cefazolin 1 GM/50 ML BAG IV (00:08)
[2022-10-10 01:34] VITALS: BP 103/64; PULSE 97; RESP 16; TEMP 37.1; O2SAT 97
[2022-10-10 05:29] VITALS: BP 106/67; PULSE 62; RESP 16; TEMP 37.2; O2SAT 99
[2022-10-10] MEDS: Enoxaparin 40 MG/0.4 ML Syringe SC (05:49)
[2022-10-10] MEDS: Levothyroxine 25 MCG TABLET PO (05:50)
[2022-10-10] MEDS: Dextrose 5%-Lactated Ringers 1,000 ML 100 ML IV (05:50)
[2022-10-10 07:35] VITALS: O2SAT 94
[2022-10-10 08:15] VITALS: BP 97/56; PULSE 71; RESP 16; TEMP 36.6; O2SAT 96
[2022-10-10 08:37] VITALS: BP 106/67; PULSE 62; RESP 16; TEMP 37.2; O2SAT 94
[2022-10-10] MEDS: Acetaminophen 325 MG Tablet PO (08:52)
[2022-10-10] MEDS: Docusate Sodium 100 MG Capsule 200 MG PO (08:52)
--- NOTE | 2022-10-10 09:01 | PCM.PROGNOTE ---
Subjective Subjective Doing well overnight. No nausea or vomiting. Pain is controlled. She was a little uncomfortable sitting due to the vaginal packing. She has not really gotten out of bed yet. She is up eating breakfast this morning. She is passing gas without difficulty. Objective Data Objective Data Vital Signs: Vital Signs Temp Pulse Resp BP Pulse Ox O2 Del Method O2 Flow Rate 98.9 F 62 16 106/67 94 Room Air 2 10/10/22 08:37 10/10/22 08:37 10/10/22 08:37 10/10/22 08:37 10/10/22 08:37 10/10/22 08:37 10/10/22 08:37 Oxygen Flow Rate (L/min) 2 Oxygen Delivery Method Room Air Weight: 76.657 kg Body Mass Index (BMI) 33.0 Intake & Output: Intake and Output for Last 24 Hours 10/08/22 10/09/22 10/10/22 23:59 23:59 23:59 Intake Total 3278.67 / 3278.67 995.00 / 995.00 Output Total 2230 / 4180 2650 / 2650 Balance 1048.67 / -901.33 -1655.00 / -1655.00 Lab / Micro Data Result Diagrams: 10/09/22 12:10 10/09/22 12:10 Labs: Laboratory Results - last 24 hr 10/09/22 12:10: WBC 6.6, RBC 3.99 L, Hgb 12.3, Hct 36.4 L, MCV 91.2, MCH 30.8, MCHC 33.8, RDW Std Deviation 44.1 H, RDW Coeff of Segun 13.1, Plt Count 235, MPV 9.2 10/09/22 12:10: Sodium 141, Potassium 3.8, Chloride 110 H, Carbon Dioxide 25.0, Anion Gap 6, BUN 8, Creatinine 0.75, Estim Creat Clear Calc 36.53, Est GFR (MDRD) Af Amer 97, Est GFR (MDRD) Non-Af 80, BUN/Creatinine Ratio 10.6, Glucose 169 H, Calcium 8.3 L Micro: Microbiology 10/09/22 06:24 Nasal Secretion SARS-CoV-2 Antigen (Rapid) - Final Physical Exam Const alert, oriented x3 and no apparent distress Resp normal respiratory effort, normal air movement, no retractions and no use of accessory muscles Cardio regular rate GI soft to palpation and non-tender GI Narrative: Mildly distended Narrative: Urine is clear yellow in the Hill bag and tubing. Vaginal packing was removed without difficulty.No abnormalities. Extremity no calf tenderness Extremity Narrative: SCDs in place Neuro oriented x3, CN's II-XII intact bilaterally and moves all extremities Assessment & Plan Assessment/Plan (1) S/P vaginal hysterectomy: (2) Uterine procidentia: (3) Stress incontinence: PLAN: Plan Ambulation Hep-Lock IV Home later today She will take the catheter out Wednesday night at home and see me in the office on Wednesday morning
[2022-10-10 13:30] VITALS: BP 112/59; PULSE 83; RESP 18; TEMP 36.6; O2SAT 96
== END 2022-10-10 14:37 | disposition home or self-care (01) ==
LOC: SDC 10:34 → MS3 10:34
PROVIDERS: Anesthesiology; Urology; Admitting Provider Obstetrics & Gynecology; PCP Internal Medicine; Referring Provider Internal Medicine; Visit Provider Obstetrics & Gynecology
PROC: (CPT 58260; principal; 2022-10-09 07:10)
PROC: (CPT 57260; 2022-10-09 07:10)
DX: N81.3 Complete uterovaginal prolapse (principal); N39.3 Stress incontinence (female) (male); E03.9 Hypothyroidism, unspecified; Z79.890 Hormone replacement therapy; Z79.899 Other long term (current) drug therapy; E55.9 Vitamin D deficiency, unspecified
CPT/HCPCS: 58262; 57288; 00944; 57260; 80048; 80053; 82962; 83735; 84443; 85025; 85027; 86850; 86900; 86901; 87426; 88307; 96361; 96365; 96366; 96372; 99218; J7120; C1758; G0378; J2405; J3475

== ENCOUNTER → 2022-12-18 | Outpatient (CLI) | payer OTHER, SELFPAY ==
[2022-12-18 12:55] LABS: Vitamin D,25 Hydroxy 35.6 ng/mL
[2022-12-18 12:58] LABS: Ferritin 281 ng/mL (8-252); Iron 86 ug/dL (50-170); Iron Binding Capacity,Total 280 ug/dL (250-450); PERCENT IRON SATURATION 30.7 % (15.0-55.0); Thyroid Stim Hormone (TSH) 3.82 uIU/mL (0.358-3.74)
== END | disposition home or self-care (01) ==
PROVIDERS: PCP Internal Medicine; Referring Provider Internal Medicine; Visit Provider Internal Medicine
DX: E55.9 Vitamin D deficiency, unspecified (principal); R53.82 Chronic fatigue, unspecified; E03.9 Hypothyroidism, unspecified
CPT/HCPCS: 36415; 82306; 82728; 83540; 83550; 84443

== ENCOUNTER 2024-01-29 11:56 | Emergency (ER) | payer OTHER, SELFPAY ==
[2024-01-29 11:56] VITALS: BP 156/92; PULSE 100; PULSE 104; RESP 16; TEMP 36.1; O2SAT 100; O2SAT 97; BMI 31.8
[2024-01-29 12:31] LABS: Bacteria 0 SEEN /hpf (None Seen); Mucous, Urine 0 SEEN /hpf (<or=2+); Red Blood Cells-Urine 0 SEEN /hpf (0-5); Squamous Epithelial Cells - UA 0 SEEN /hpf (5-10); White Blood Cells 0 SEEN /hpf (0-5)
[2024-01-29 12:51] LABS: Color, Urine Yellow (Yellow); Glucose, Dipstick Normal (Normal); Ketone-Dipstick Negative (Negative); Leukocyte Esterase-Dipstick Negative /ul (Negative); Nitrite-Dipstick Negative (Negative); Occult Blood-Urine Negative /ul (Negative); Protein-Dipstick Negative (Negative); Urine Bilirubin Dipstick Negative (Negative); Urine Clarity Clear (Clear); Urine Urobilinogen Normal (Normal)
--- NOTE | 2024-01-29 13:14 | CT_ITS ---
STUDY: CT ABDOMEN AND PELVIS WITH CONTRAST REASON FOR EXAM: Female, 73 years old. Abdominal pain RADIATION DOSAGE (If Supplied By Facility): CTDIvol = ( 18.21 ) mGy, DLP = ( 789.24 ) mGycm TECHNIQUE: IV 100mL Isovue-370 was administered. Transaxial images were obtained from the dome of the diaphragm to the symphysis pubis. Multiplanar coronal and sagittal images were reformatted. Individualized Dose Optimization Techniques Were Used For This CT. COMPARISON: No relevant prior comparison study available FINDINGS: The visualized lung bases are unremarkable. The visualized portions of the heart are within normal limits. Hepatomegaly and hepatic steatosis. There are surgical clips in the gallbladder fossa consistent with a prior cholecystectomy. Normal spleen. Normal pancreas. Normal bilateral adrenal glands. Small simple cysts both kidneys. No evidence of hydronephrosis. There is a small hiatal hernia. Normal caliber small bowel loops. Sigmoid diverticulosis with pericolonic stranding extending to the dome of the bladder with focal thickening of the bladder wall consistent with acute diverticulitis. No evidence of drainable abscess. Focal density posterior to the sigmoid colon may be related to the left adnexa. There is non-visualization of the appendix. No evidence of abdominal aortic aneurysm. No retroperitoneal adenopathy. Absent uterus consistent with previous hysterectomy. Status post anterior abdominal wall hernia repair with mesh. Degenerative changes of the spine. CT/Abdomen/Pelvis W IV Cont ONLY IMPRESSION: 1. Acute sigmoid diverticulitis with inflammatory changes extending to the bladder dome with focal thickening of the bladder wall. No evidence of drainable abscess at this time. 2. Focal intermediate density in the left lower quadrant may related to the left adnexa. 3. Hepatomegaly and hepatic steatosis. 4. Status post cholecystectomy, hysterectomy and anterior abdominal wall hernia repair.. Electronically Signed: Jose Urena MD at 15:17 EDT ,
--- NOTE | 2024-01-29 13:16 | EDS_ITS ---
HPI <JO ANN Dodd - Last Filed: 01/29/24 15:40> History of Present Illness Chief Complaint: Abd Pain Narrative Narrative: 73-year-old female with PMH of abdominal hernia repair, hysterectomy and bladder repair, diverticulitis presents with 4 days of bilateral lower quadrant abdominal pain. She has had about 1 episode of diarrhea today. She states she frequently gets diarrhea based on what she eats. She has not had melena or hematochezia. No fever, chills, nausea or vomiting. She was concerned the lower abdominal pain could be related to the hysterectomy/bladder repair she had 2 years ago. Over the last year she often gets a sensation to urinate but nothing comes out. She has not had dysuria or change in urine color. PFSH <JO ANN Dodd - Last Filed: 01/29/24 15:40> PFSH Home Medications amoxicillin 875 mg-potassium clavulanate 125 mg tablet 1 tab PO BID 7 days #14 tabs 01/29/24 [Rx Last Taken Unknown] Allergy/AdvReac Type Severity Reaction Status Date / Time bee venom protein (honey bee) Allergy Intermediate Swelling Verified 01/29/24 12:00 peanut Allergy Mild Rash Verified 01/29/24 12:00 Social History Smoking Status: Never smoker ROS <JO ANN Dodd - Last Filed: 01/29/24 15:40> ROS ED ROS Narrative Constitutional: Negative for fever, chills, malaise. CVS: Negative for chest pain. Respiratory: Negative for shortness of breath. GI: Positive for abdominal pain, diarrhea. Negative for nausea, vomiting, constipation, melena, hematochezia. : Negative for dysuria, hematuria or frequency. EXAM <JO ANN Dodd - Last Filed: 01/29/24 15:40> Physical Exam Narrative Exam Narrative: CONST: Patient sitting in no acute distress. EYES: Normal inspection. NECK: Normal inspection. RESP: No respiratory distress, CTAB. CVS: Regular rate and rhythm, no murmur, no gallop. ABD: Soft with tenderness in both lower quadrants left greater than right, no guarding or rebound, nondistended. SKIN: Color normal, no rash, warm, dry, intact. EXTREMITIES: Normal appearance, no pedal edema. NEURO: Oriented and answering questions appropriately. PSYCH: Normal affect. Const Vital Signs: 01/29/24 11:56 01/29/24 11:56 01/29/24 13:56 Temperature 97.0 F L 98.6 F Temperature Source Temporal Temporal Pulse Rate 104 H 100 84 Respiratory Rate 16 16 16 Blood Pressure 156/92 H 156/92 H 132/77 H Blood Pressure Mean 113 113 95 Pulse Ox 100 97 97 Oxygen Delivery Method Room Air Room Air Room Air <Dr. Melvin Valdivia DO - Last Filed: 01/29/24 15:44> Physical Exam Const Vital Signs: 01/29/24 11:56 01/29/24 11:56 01/29/24 13:56 Temperature 97.0 F L 98.6 F Temperature Source Temporal Temporal Pulse Rate 104 H 100 84 Respiratory Rate 16 16 16 Blood Pressure 156/92 H 156/92 H 132/77 H Blood Pressure Mean 113 113 95 Pulse Ox 100 97 97 Oxygen Delivery Method Room Air Room Air Room Air MDM <JO ANN Dodd - Last Filed: 01/29/24 15:40> [facility] Narrative Medical decision making narrative: History gathered from: Patient and family members Differential: Diverticulitis, abscess, UTI, kidney stone Patient has bilateral lower abdominal pain x 4 days and looser stools. She appears well and nontoxic. Vital signs stable. Normal cardiopulmonary exam. She is tender in bilateral lower quadrants with no peritoneal signs. Workup shows white count of 14.2, otherwise unremarkable blood work. Urinalysis negative. CT scan shows acute uncomplicated sigmoid diverticulitis. She declined analgesia here. I discussed symptomatic treatment including clear liquid diet for several days, advancing to a bland diet and Augmentin. She was comfortable with this plan and discharged in stable condition. Lab Data Attestation: I reviewed the patient's lab results. Labs: Laboratory Results - last 24 hr 01/29/24 01/29/24 12:25 14:10 WBC 14.2 H RBC 5.01 Hgb 15.1 H Hct 45.9 MCV 91.6 MCH 30.1 MCHC 32.9 RDW Std Deviation 45.9 H RDW Coeff of Segun 13.6 Plt Count 277 MPV 9.2 Immature Gran % (Auto) 0.500 Neut % (Auto) 74.1 H Lymph % (Auto) 16.9 L Tucker % (Auto) 7.1 Eos % (Auto) 1.0 Baso % (Auto) 0.4 Absolute Neuts (auto) 10.5 H Absolute Lymphs (auto) 2.39 Nucleated RBC % 0 Sodium 138 Potassium 3.9 Chloride 106 Carbon Dioxide 27.0 Anion Gap 5 BUN 10 Creatinine 0.83 Estim Creat Clear Calc 54.23 Est GFR (MDRD) Af Amer 87 Est GFR (MDRD) Non-Af 72 BUN/Creatinine Ratio 12.1 Glucose 107 H Calcium 9.5 Urine Color Yellow Urine Clarity Clear Urine pH 7.0 Ur Specific [place] 1.010 Urine Protein Negative Urine Glucose (UA) Normal Urine Ketones Negative Urine Occult Blood Negative Urine Nitrite Negative Urine Bilirubin Negative Urine Urobilinogen Normal Ur Leukocyte Esterase Negative Urine RBC 0 SEEN Urine WBC 0 SEEN Ur Squamous Epith Cells 0 SEEN Urine Bacteria 0 SEEN Urine Mucus 0 SEEN Radiography Diagnostic Testing: Clinical Impression(s) from Imaging Studies Abdomen/Pelvis CT 01/29/24 13:14 IMPRESSION: 1. Acute sigmoid diverticulitis with inflammatory changes extending to the bladder dome with focal thickening of the bladder wall. No evidence of drainable abscess at this time. 2. Focal intermediate density in the left lower quadrant may related to the left adnexa. 3. Hepatomegaly and hepatic steatosis. 4. Status post cholecystectomy, hysterectomy and anterior abdominal wall hernia repair.. Electronically Signed: Jose Urena MD at 15:17 EDT , <Dr. Melvin Valdivia, DO - Last Filed: 01/29/24 15:44> [facility] Narrative Medical decision making narrative: History gathered from: Patient and family members Differential: Diverticulitis, abscess, UTI, kidney stone Patient has bilateral lower abdominal pain x 4 days and looser stools. She appears well and nontoxic. Vital signs stable. Normal cardiopulmonary exam. She is tender in bilateral lower quadrants with no peritoneal signs. Workup shows white count of 14.2, otherwise unremarkable blood work. Urinalysis negative. CT scan shows acute uncomplicated sigmoid diverticulitis. She declined analgesia here. I discussed symptomatic treatment including clear liquid diet for several days, advancing to a bland diet and Augmentin. She was comfortable with this plan and discharged in stable condition. This patient was seen with a PA/[employer] Individually assessed they patient including history and physical. I have reviewed everything on the chart that is available and agree with the documentation provided by the PA/[employer] including discussion about the assessment, treatment plan, discussion, and return precautions. Patient presenting with stools, history of diverticulitis. Patient workup shows leukocytosis of 13. Hemoglobin stable 15. UA negative. No dehydration electrolytes are normal. CT of the abdomen pelvis shows acute sigmoid diverticulitis without evidence of abscess or perforation. Patient counseled on findings. She will be started on Augmentin. First dose given in ED. Lab Data Labs: Laboratory Results - last 24 hr 01/29/24 01/29/24 12:25 14:10 WBC 14.2 H RBC 5.01 Hgb 15.1 H Hct 45.9 MCV 91.6 MCH 30.1 MCHC 32.9 RDW Std Deviation 45.9 H RDW Coeff of [place] 13.6 Plt Count 277 MPV 9.2 Immature Gran % (Auto) 0.500 Neut % (Auto) 74.1 H Lymph % (Auto) 16.9 L Tucker % (Auto) 7.1 Eos % (Auto) 1.0 Baso % (Auto) 0.4 Absolute Neuts (auto) 10.5 H Absolute Lymphs (auto) 2.39 Nucleated RBC % 0 Sodium 138 Potassium 3.9 Chloride 106 Carbon Dioxide 27.0 Anion Gap 5 BUN 10 Creatinine 0.83 Estim Creat Clear Calc 54.23 Est GFR (MDRD) Af Amer 87 Est GFR (MDRD) Non-Af 72 BUN/Creatinine Ratio 12.1 Glucose 107 H Calcium 9.5 Urine Color Yellow Urine Clarity Clear Urine pH 7.0 Ur Specific [place] 1.010 Urine Protein Negative Urine Glucose (UA) Normal Urine Ketones Negative Urine Occult Blood Negative Urine Nitrite Negative Urine Bilirubin Negative Urine Urobilinogen Normal Ur Leukocyte Esterase Negative Urine RBC 0 SEEN Urine WBC 0 SEEN Ur Squamous Epith Cells 0 SEEN Urine Bacteria 0 SEEN Urine Mucus 0 SEEN Radiography Diagnostic Testing: Clinical Impression(s) from Imaging Studies Abdomen/Pelvis CT 01/29/24 13:14 IMPRESSION: 1. Acute sigmoid diverticulitis with inflammatory changes extending to the bladder dome with focal thickening of the bladder wall. No evidence of drainable abscess at this time. 2. Focal intermediate density in the left lower quadrant may related to the left adnexa. 3. Hepatomegaly and hepatic steatosis. 4. Status post cholecystectomy, hysterectomy and anterior abdominal wall hernia repair.. Electronically Signed: Jose Urena MD at 15:17 EDT , Discharge Plan Triage Chief Complaint: Abd Pain ED Midlevel Provider: Halle López ED Provider: Melvin Valdivia Dx/Rx/DC Orders Clinical Impression: Diverticulitis Instructions: Diverticulitis Dc Prescriptions: New amoxicillin-pot clavulanate 875-125 mg tablet 1 tab PO BID 7 Days Qty: 14 0RF Primary Care Provider: Tracy Martin Referrals: Tracy Martin MD [Primary Care Provider] - Activity Restrictions/Additional Instructions: I recommended clear liquid diet for the next 2 days and then slowly introduce bland diet as tolerated. Take Tylenol every 6 hours as needed for pain. Disposition Disposition: Home, Self Care
[2024-01-29 13:56] VITALS: BP 132/77; PULSE 84; RESP 16; TEMP 37; O2SAT 97
[2024-01-29 14:25] LABS: Absolute Lymphocyte Count 2.39 X10^3/uL (0.83-4.51); Absolute Neutrophil Count 10.5 X10^3/uL (2.0-7.7); Basophil# 0.05 X10^3/uL; Basophil% 0.4 % (0-1); Eosinophil# 0.14 X10^3/uL; Hematocrit 45.9 % (37-47); Hemoglobin 15.1 g/dL (12.0-15.0); Lymphocyte # 2.39 X10^3/ul (0.83-4.51); Lymphocyte % 16.9 % (19-41); Mean Corp Hgb Conc 32.9 g/dL (32-36); Mean Corpuscular Hgb 30.1 pg (27.0-32.0); Mean Corpuscular Volume 91.6 fL (81-99); Mean Platelet Vol. 9.2 fl (6.2-12.0); Monocyte# 1.01 X10^3/uL; Monocyte% 7.1 % (0-10); NRBC Flagged by Analyzer 0 % (0-5); Neutrophil % 74.1 % (47-70); Platelet Count 277 K/mm3 (150-450); RBC Distribution Width CV 13.6 % (11.6-14.6); RBC Distribution Width SD 45.9 fl (35.1-43.9); Red Blood Count 5.01 M/mm3 (4.2-5.4); White Blood Count 14.2 K/mm3 (4.4-11.0)
[2024-01-29 14:36] LABS: Anion Gap 5 (5-15); BUN 10 mg/dL (7-18); BUN/Creat Ratio 12.1 RATIO (10-20); Calcium,Total 9.5 mg/dL (8.5-10.1); Chloride 106 mmol/L (98-107); Creatinine, Serum 0.83 mg/dL (0.55-1.02); EST Glomerular Filtration Rate 72 mL/min (>60); Est Glom Filt Rate - Afr Amer 87 mL/min (>60); Estimated Creatinine Clearance 54.23 ml/min; Glucose 107 mg/dL (74-106); Potassium 3.9 mmol/L (3.5-5.1); Sodium Level 138 mmol/L (136-145)
[2024-01-29 15:43] VITALS: BP 131/85; PULSE 90; RESP 18; TEMP 36.7; O2SAT 96
[2024-01-29] MEDS: Amox/Clavulanate 875 MG Tablet PO (15:45)
== END 2024-01-29 15:53 | disposition home or self-care (01) ==
PROVIDERS: Physician Assistant; Emergency Provider Student in an Organized Health Care Education/Training Program; PCP Internal Medicine; Visit Provider Student in an Organized Health Care Education/Training Program
DX: K57.32 Diverticulitis of large intestine without perforation or abscess without bleeding (principal)
CPT/HCPCS: 74177; 80048; 81001; 85025; 99282; Q9967; A4216

== ENCOUNTER → 2024-02-02 | Outpatient (CLI) | payer OTHER, SELFPAY ==
[2024-02-02 14:53] LABS: Absolute Lymphocyte Count 2.09 X10^3/uL (0.83-4.51); Absolute Neutrophil Count 4.2 X10^3/uL (2.0-7.7); Basophil# 0.04 X10^3/uL; Basophil% 0.6 % (0-1); Eosinophil# 0.08 X10^3/uL; Eosinophils% 1.2 % (0-5); Hematocrit 43.4 % (37-47); Hemoglobin 14.4 g/dL (12.0-15.0); Lymphocyte # 2.09 X10^3/ul (0.83-4.51); Lymphocyte % 30.3 % (19-41); Mean Corp Hgb Conc 33.2 g/dL (32-36); Mean Corpuscular Hgb 30.4 pg (27.0-32.0); Mean Corpuscular Volume 91.8 fL (81-99); Mean Platelet Vol. 9.5 fl (6.2-12.0); Monocyte# 0.51 X10^3/uL; Monocyte% 7.4 % (0-10); NRBC Flagged by Analyzer 0 % (0-5); Neutrophil # 4.15 X10^3/uL (2.7-7.7); Neutrophil % 60.2 % (47-70); Platelet Count 331 K/mm3 (150-450); RBC Distribution Width SD 44.2 fl (35.1-43.9); Red Blood Count 4.73 M/mm3 (4.2-5.4); White Blood Count 6.9 K/mm3 (4.4-11.0)
[2024-02-02 15:10] LABS: Vitamin D,25 Hydroxy 46.3 ng/mL
[2024-02-02 16:06] LABS: AST(SGOT) 37 U/L (15-37); Alanine Aminotransfer ALT/SGPT 45 U/L (13-56); Albumin, Serum 3.9 g/dL (3.2-5.0); Alkaline Phosphatase 64 U/L (45-117); Anion Gap 6 (5-15); BUN 9 mg/dL (7-18); BUN/Creat Ratio 11.3 RATIO (10-20); Calcium,Total 9.5 mg/dL (8.5-10.1); Chloride 106 mmol/L (98-107); EST Glomerular Filtration Rate 75 mL/min (>60); Est Glom Filt Rate - Afr Amer 91 mL/min (>60); Globulin 3.8 g/dL (2.2-4.2); Glucose 102 mg/dL (74-106); Potassium 3.8 mmol/L (3.5-5.1); Protein, Total 7.7 g/dL (6.4-8.2); Sodium Level 139 mmol/L (136-145); Thyroid Stim Hormone (TSH) 5.16 uIU/mL (0.358-3.74)
== END | disposition home or self-care (01) ==
LOC: BIMLAB 12:44
PROVIDERS: PCP Internal Medicine; Visit Provider Internal Medicine
DX: E55.9 Vitamin D deficiency, unspecified (principal); K57.92 Diverticulitis of intestine, part unspecified, without perforation or abscess without bleeding; E03.9 Hypothyroidism, unspecified
CPT/HCPCS: 36415; 80053; 82306; 84443; 85025